=== PATIENT | male | born 1975 | race Caucasian/White ===

== ENCOUNTER 2025-01-11 15:17 | Inpatient (IN) | payer MEDICARE, OTHER ==
[~2025-01-11] VITALS: Ht 195.6 cm; Wt 131.5 kg
[2025-01-11 16:03] LABS: BASOPHILS # (AUTO) 0.1 K/uL (0.0-0.2); BASOPHILS % (AUTO) 0.9 % (0.0-2.0); EOSINOPHILS # (AUTO) 0.2 K/uL (0.0-0.7); EOSINOPHILS % (AUTO) 2.5 % (0.0-6.0); HEMATOCRIT 46 % (39-51); HEMOGLOBIN 15.3 g/dL (13.5-17.5); LYMPHOCYTES # (AUTO) 3.2 K/uL (0.8-4.8); LYMPHOCYTES % (AUTO) 35.7 % (20.0-44.0); MEAN CORPUSCULAR HEMOGLOBIN 32 PG (26.0-33.0); MEAN CORPUSCULAR HGB CONC 34 g/dl (31.0-36.0); MEAN CORPUSCULAR VOLUME 94 fL (80-96); MONOCYTES # (AUTO) 0.9 K/uL (0.1-1.30); MONOCYTES % (AUTO) 10.1 % (2.0-12.0); NEUTROPHILS # (AUTO) 4.5 K/uL (1.8-8.9); NEUTROPHILS % (AUTO) 50.8 % (43.0-81.0); PLATELET COUNT (AUTO) 155 K/uL (150-450); RED BLOOD CELL COUNT(AUTO) 4.86 MIL/uL (4.5-6.0); RED CELL DISTRIBUTION WIDTH 14.8 % (11.5-15.0); WHITE BLOOD COUNT (AUTO) 8.9 K/uL (4.3-11.0)
[2025-01-11 16:10] LABS: CALCIUM, SERUM 9.1 mg/dL (8.5-10.1); CARBON DIOXIDE 28 mmol/L (21-32); CHLORIDE 101 mmol/L (98-107); CREATININE 1.3 mg/dL (0.6-1.3); GLUCOSE 244 mg/dL (74-106); POTASSIUM 4.1 mmol/L (3.5-5.1); SODIUM SERUM 135 mmol/L (136-145); UREA NITROGEN, BLOOD 15 mg/dL (7-18)
[2025-01-11 16:16] LABS: ALANINE AMINOTRANSFERASE 62 U/L (12-78); ALBUMIN 3.7 g/dL (3.4-5.0); ALCOHOL, BLOOD < 3 mg/dL (0-10); ALKALINE PHOSPHATASE 86 U/L (46-116); ASPARTATE AMINOTRANSFERASE 34 U/L (15-37); BILIRUBIN,DIRECT 0.1 mg/dL (0.0-0.2); BILIRUBIN,TOTAL 0.4 mg/dL (0.2-1.0); TOTAL PROTEIN, SERUM 7.7 g/dL (6.4-8.2)
[2025-01-11 16:17] LABS: ACETAMINOPHEN <10 ug/ml (10-30); SALICYLATE 0.8 mg/dL (2.8-20.0)
[2025-01-11 16:50] LABS: APPEARANCE,URINE CLEAR (CLEAR); BILIRUBIN,URINE Negative (NEGATIVE); BLOOD, URINE Small Ery/uL (NEGATIVE); COLOR,URINE YELLOW (YELLOW); KETONES,URINE 15 mg/dL (NEGATIVE); LEUKOCYTE ESTERASE ,URINE Negative (NEGATIVE); NITRITE, URINE NEGATIVE (NEGATIVE); PH,URINE 5.5 (5.0-8.0); PROTEIN,URINE Negative (NEGATIVE); UGLUCOSE >=1000 mg/dL (NEGATIVE); UROBILINOGEN,URINE 0.2 EU/dL (0.2)
[2025-01-11 16:51] LABS: ADD URINE CULTURE NO; BACTERIA,URINE Few /HPF (None Seen); HYALINE CASTS, URINE Rare /LPF (None Seen); SQUAMOUS EPITHELIAL CELL,UR Rare /HPF (None Seen); WBC,URINE 0-2 /HPF (0-3)
[2025-01-11 16:58] LABS: AMPHETAMINE, URINE NEGATIVE (NEGATIVE); BARBITURATE, URINE NEGATIVE (NEGATIVE); BENZODIAZEPINE, URINE NEGATIVE (NEGATIVE); CANNABINOID, URINE NEGATIVE (NEGATIVE); COCCAINE, URINE NEGATIVE (NEGATIVE); OPIATE, URINE NEGATIVE (NEGATIVE); PHENCYCLIDINE SCREEN,URINE NEGATIVE (NEGATIVE)
[2025-01-11] MEDS ORDERED: diphenhydrAMINE HCL 50 MG/ML VIAL ONE (19:30)
[2025-01-11] MEDS ORDERED: OLANZAPINE 10 MG VIAL IM ONE (19:31)
[2025-01-11] MEDS: diphenhydrAMINE HCL 50 MG/ML VIAL IM ONE (19:36)
[2025-01-11] MEDS: OLANZAPINE 10 MG VIAL IM ONE (19:36)
[2025-01-11] MEDS ORDERED: LORA-259 PO (20:13)
[2025-01-11] MEDS ORDERED: METO25TA6 PO (20:13)
[2025-01-11] MEDS ORDERED: QUET200T PO (20:13)
[2025-01-11] MEDS ORDERED: HYDR-4076 PO (20:13)
[2025-01-11] MEDS ORDERED: FLUP5TAB14 PO (20:13)
[2025-01-11] MEDS ORDERED: ROSU20TA2 PO (20:13)
[2025-01-11] MEDS ORDERED: EMPA10TA PO (20:13)
[2025-01-11] MEDS ORDERED: RIVA15TA PO (20:13)
[2025-01-11] MEDS ORDERED: QUET300T2 PO (20:13)
[2025-01-11] MEDS ORDERED: DIVA-78 PO (20:13)
[2025-01-11] MEDS ORDERED: DIGO250T PO (20:13)
[2025-01-11] MEDS ORDERED: SACU1TAB PO (20:13)
[2025-01-11] MEDS ORDERED: ZOLPIDEM TARTRATE 5 MG TABLET PO PRN ×2 (20:30)
[2025-01-11] MEDS ORDERED: ACETAMINOPHEN 325 MG TABLET PO PRN (20:30)
[2025-01-11] MEDS ORDERED: MAG HYDROX/AL HYDROX/SIMETH 30 ML UDC PO PRN (20:30)
[2025-01-11] MEDS ORDERED: MAGNESIUM HYDROXIDE 30 ML UDC PO PRN (20:30)
[2025-01-11] MEDS ORDERED: QUETIAPINE FUMARATE 25 MG TABLET PO PRN ×2 (20:30)
[2025-01-11 20:48] VITALS: BP 150/83; TEMP 98.2; O2SAT 100
[2025-01-11] MEDS: BLOOD SUGAR DIAGNOSTIC 1 EACH STRIP IN ONE (21:14)
[2025-01-12 08:00] VITALS: BP 155/90; TEMP 97.7; O2SAT 97
[2025-01-12] MEDS ORDERED: diphenhydrAMINE HCL 50 MG/ML VIAL IV PRN (11:30)
[2025-01-12] MEDS: hydrALAZINE HCL 25 MG TABLET PO SCH (11:59)
[2025-01-12] MEDS: DIGOXIN 0.25 MG TABLET PO SCH (11:59)
[2025-01-12] MEDS: SACUBITRIL/VALSARTAN 24/26MG TABLET PO SCH (12:00)
[2025-01-12] MEDS: ATORVASTATIN 40 MG TABLET PO SCH (12:00)
[2025-01-12] MEDS: EMPAGLIFLOZIN 10 MG TABLET PO SCH (12:00)
[2025-01-12] MEDS: METOPROLOL TARTRATE 25 MG TABLET PO SCH (12:01)
[2025-01-12] MEDS: diphenhydrAMINE HCL 50 MG/ML VIAL IM ONE (12:02)
[2025-01-12] MEDS: RIVAROXABAN 15 MG TABLET PO SCH (12:02)
[2025-01-12] MEDS: NICOTINE PATCH (14MG) 14 MG PATCH.TD24 TD SCH (12:02)
[2025-01-12] MEDS: OLANZAPINE 10 MG VIAL IM ONE (12:02)
[2025-01-12 16:00] VITALS: BP 132/46; TEMP 98; O2SAT 97
[2025-01-12] MEDS: DIVALPROEX SODIUM 500 MG TABLET.DR PO SCH (16:24)
[2025-01-12] MEDS ORDERED: TEMAZEPAM 7.5 MG CAPSULE PO PRN (17:00)
[2025-01-12] MEDS: risperiDONE 1 MG TABLET PO SCH (17:12)
[2025-01-12] MEDS: QUETIAPINE FUMARATE 25 MG TABLET PO SCH (17:12)
[2025-01-12 19:54] VITALS: BP 131/73; TEMP 97.9; O2SAT 97
[2025-01-12] MEDS: QUETIAPINE FUMARATE 100 MG TABLET PO SCH (21:18)
[2025-01-13 08:00] VITALS: BP 140/89; TEMP 98; O2SAT 99
[2025-01-13 16:00] VITALS: BP 137/78; TEMP 98.2; O2SAT 98
[2025-01-13 16:21] LABS: SERUM AMMONIA 14 umol/L (11-32)
[2025-01-13 16:29] LABS: VALPROIC ACID 37 ug/mL (50-100)
[2025-01-13 19:48] VITALS: BP 119/79; TEMP 98.4; O2SAT 99
[2025-01-14 08:00] VITALS: BP 139/77; TEMP 98.9; O2SAT 95
[2025-01-14] MEDS: DIVALPROEX SODIUM 500 MG TABLET.DR PO SCH (12:22)
[2025-01-14 16:00] VITALS: BP 130/79; TEMP 97.7; O2SAT 96
[2025-01-14] MEDS: DIVALPROEX SODIUM 250 MG TABLET.DR PO SCH (16:27)
[2025-01-14] MEDS: risperiDONE 1 MG TABLET PO SCH (16:28)
[2025-01-14 20:00] VITALS: BP 146/50; TEMP 97.9; O2SAT 97
[2025-01-15 08:00] VITALS: BP 137/75; TEMP 98; O2SAT 99
[2025-01-15 16:00] VITALS: BP 122/62; TEMP 98.2; O2SAT 96
[2025-01-15] MEDS: LORAZEPAM 0.5 MG TABLET PO PRN (19:46)
[2025-01-15 21:02] VITALS: BP 128/74; TEMP 98.1; O2SAT 97
[2025-01-16 08:00] VITALS: BP 133/56; TEMP 97.9; O2SAT 96
[2025-01-16 16:00] VITALS: BP 132/82; TEMP 98.9; O2SAT 99
[2025-01-16 20:13] VITALS: BP 145/89; TEMP 97.9; O2SAT 96
[2025-01-17 08:00] VITALS: BP 138/83; TEMP 98.1; O2SAT 98
[2025-01-17] MEDS: DIVALPROEX SODIUM 250 MG TABLET.DR PO SCH (11:45)
[2025-01-17 16:00] VITALS: BP 155/65; TEMP 98.7; O2SAT 97
[2025-01-17 20:10] VITALS: BP 122/86; TEMP 98.2; O2SAT 95
[2025-01-18 08:05] VITALS: BP 154/99; TEMP 98; O2SAT 95
[2025-01-18 16:01] VITALS: BP 131/76; TEMP 98.6; O2SAT 99
[2025-01-18 20:12] VITALS: BP 125/70; TEMP 98.6; O2SAT 100
[2025-01-19 08:00] VITALS: BP 136/75; TEMP 98.1; O2SAT 99
[2025-01-19] MEDS: QUETIAPINE FUMARATE 25 MG TABLET PO SCH (12:31)
[2025-01-19] MEDS: risperiDONE 1 MG TABLET PO SCH (12:31)
[2025-01-19 16:00] VITALS: BP 138/98; TEMP 97.8; O2SAT 99
[2025-01-19 20:15] VITALS: BP 128/69; TEMP 97.9; O2SAT 98
[2025-01-20 08:00] VITALS: BP 133/88; TEMP 98.7; O2SAT 100
[2025-01-20 16:00] VITALS: BP 134/84; TEMP 97.4; TEMP 97.5; O2SAT 96
[2025-01-20 20:00] VITALS: BP 125/71; TEMP 97.5; O2SAT 95
[2025-01-21 08:00] VITALS: BP 137/93; TEMP 98; O2SAT 96
[2025-01-21] MEDS: QUETIAPINE FUMARATE 25 MG TABLET PO SCH (12:21)
[2025-01-21 16:00] VITALS: BP 140/75; TEMP 97.8; O2SAT 97
[2025-01-21 20:24] VITALS: BP 136/71; TEMP 97; O2SAT 97
[2025-01-21 22:34] VITALS: BP 136/71; TEMP 97.7; O2SAT 97
[2025-01-22 08:00] VITALS: BP 152/90; TEMP 98.7; O2SAT 100
[2025-01-22 16:00] VITALS: BP 145/77; TEMP 97.9; O2SAT 99
[2025-01-22 20:09] VITALS: BP 130/74; TEMP 98.1; O2SAT 97
[2025-01-23 08:00] VITALS: BP 120/68; TEMP 98.2; O2SAT 98
[2025-01-23 16:00] VITALS: BP 108/60; TEMP 98.6; O2SAT 97
[2025-01-23 20:10] VITALS: BP 101/56; TEMP 98.6; O2SAT 96
[2025-01-24 08:00] VITALS: BP 118/81; TEMP 98.7; O2SAT 98
[2025-01-24 13:00] VITALS: BP 118/81
== END 2025-01-24 14:50 | DRG 885 ==
LOC: ER 15:17 → GPS 20:05
PROVIDERS: ADMIT Nurse Practitioner Psychiatric/Mental Health; ATTEND Internal Medicine
DX: F25.0 Schizoaffective disorder, bipolar type (principal); I11.0 Hypertensive heart disease with heart failure; I50.32 Chronic diastolic (congestive) heart failure; F29 Unspecified psychosis not due to a substance or known physiological condition; E11.9 Type 2 diabetes mellitus without complications; Z95.0 Presence of cardiac pacemaker; Z79.899 Other long term (current) drug therapy; Z73.6 Limitation of activities due to disability; I34.0 Nonrheumatic mitral (valve) insufficiency; Z87.891 Personal history of nicotine dependence; Z68.34 Body mass index [BMI] 34.0-34.9, adult; E66.9 Obesity, unspecified
CPT/HCPCS: 36415; 71045-TC; 80048-TC; 80076-TC; 80164-TC; 81001; 82140-TC; 85025-TC; 87081-TC; 97112-TC; 97116-TC; 97530-TC; G0480; J1200; J3490